=== PATIENT | male | born 1935 | race American Indian/Alaskan Native ===

== ENCOUNTER 2018-06-11 14:59 | Emergency (ER) | payer MEDICARE, OTHER ==
--- NOTE | 2018-06-11 15:33 | Emergency Department Report ---
ED General Adult HPI - General Chief complaint: Cardiac Arrest/CPR Stated complaint: CARDIAC Time Seen by Provider: 06/11/18 15:03 Source: EMS Mode of arrival: Stretcher Limitations: Other - History of Present Illness Initial comments: Patient was found unresponsive at a local long-term. Upon EMS arrival the patient was in asystole and ACLS protocol was followed. Patient is intubated and is unable to add to history -: Sudden Improves with: none Worsens with: none Treatments Prior to Arrival: other (epinephrine) - Related Data Previous Rx's Medication Instructions Recorded Last Taken Type Acetaminophen [Acetaminophen 650 mg IL Q6H PRN #30 supp.rect 06/19/17 04/09/18 Rx SUPPOS] 650 Acetaminophen [Acetaminophen TAB] 325 mg PO Q4H PRN #30 tablet 04/17/18 Unknown Rx Ascorbic Acid [Vitamin C] 500 mg PO BID #60 04/17/18 Unknown Rx Brimonidine/Timolol 0.2-0.5% 1 drops OP Q12H #1 04/17/18 Unknown Rx [Combigan 0.2-0.5%] Calcium Carbonate/Vitamin D3 1 tab PO BID #30 04/17/18 Unknown Rx [Calcium 500 mg Chewable Tablet] Finasteride [Proscar] 5 mg PO QDAY #30 04/17/18 Unknown Rx Latanoprost 0.005% 1 drop OU QHS #1 04/17/18 Unknown Rx Ranitidine HCl [Zantac 150 MG TAB] 150 mg PO QHS #30 04/17/18 Unknown Rx Tamsulosin [Flomax] 0.4 mg PO QPM #30 capsule 04/17/18 Unknown Rx levoFLOXacin [Levaquin TAB] 750 mg PO Q24HR #9 tablet 04/17/18 Unknown Rx Allergies Allergy/AdvReac Type Severity Reaction Status Date / Time No Known Allergies Allergy Unverified 06/21/13 19:39 ED Review of Systems ROS: Stated complaint: CARDIAC Other details as noted in HPI Comment: Unobtainable due to pts medical conditions ED Past Medical Hx - Past Medical History Hx Hypertension: Yes Hx Dementia: Yes Additional medical history: Alheizmers, Glaucoma, Blind, BPH - Social History Smoking Status: Unknown if ever smoked - Medications Home Medications: Home Medications Medication Instructions Recorded Confirmed Last Taken Type Acetaminophen [Acetaminophen 650 mg IL Q6H PRN #30 supp.rect 06/19/17 04/09/18 04/09/18 Rx SUPPOS] 650 Acetaminophen [Acetaminophen TAB] 325 mg PO Q4H PRN #30 tablet 04/17/18 Unknown Rx Ascorbic Acid [Vitamin C] 500 mg PO BID #60 04/17/18 04/09/18 Unknown Rx Brimonidine/Timolol 0.2-0.5% 1 drops OP Q12H #1 04/17/18 04/09/18 Unknown Rx [Combigan 0.2-0.5%] Calcium Carbonate/Vitamin D3 1 tab PO BID #30 04/17/18 04/09/18 Unknown Rx [Calcium 500 mg Chewable Tablet] Finasteride [Proscar] 5 mg PO QDAY #30 04/17/18 04/09/18 Unknown Rx Latanoprost 0.005% 1 drop OU QHS #1 04/17/18 04/09/18 Unknown Rx Ranitidine HCl [Zantac 150 MG TAB] 150 mg PO QHS #30 04/17/18 04/09/18 Unknown Rx Tamsulosin [Flomax] 0.4 mg PO QPM #30 capsule 04/17/18 Unknown Rx levoFLOXacin [Levaquin TAB] 750 mg PO Q24HR #9 tablet 04/17/18 Unknown Rx ED Physical Exam - General Limitations: Other General appearance: other (patient is intubated and receiving chest compressions on arrival) - Head Head exam: Present: atraumatic, normocephalic - Eye Eye exam: Present: other (no corneal reflex) - ENT ENT exam: Present: normal exam - Neck Neck exam: Present: normal inspection - Respiratory Respiratory exam: Present: other (breath sounds with bagging) - Cardiovascular Cardiovascular Exam: Present: other (asystole) - GI/Abdominal GI/Abdominal exam: Present: soft. Absent: distended - Neurological Exam Neurological exam: Present: other (GCS 3T) - Psychiatric Psychiatric exam: Present: other (not able to assess due to the patient's condition) - Skin Skin exam: Present: intact ED Medical Decision Making - Medical Decision Making She arrived intubated and being bagged with chest compressions in progress Patient had been reportedly down for 40 minutes received 4 rounds of epinephrine Patient was asystole on arrival has been in asystole since the time of EMS arrival Comment at this 1457 Critical care attestation.: If time is entered above; I have spent that time in minutes in the direct care of this critically ill patient, excluding procedure time. ED Disposition Clinical Impression: Cardiac arrest Disposition: [id number] Is pt being admited?: No Does the pt Need Aspirin: No Condition: Stable
== END 2018-06-11 17:48 ==
LOC: ED 14:59
DX: I46.9 Cardiac arrest, cause unspecified (principal); I10 Essential (primary) hypertension
CPT/HCPCS: 99285